=== PATIENT | male | born 1965 | race Caucasian/White ===

== ENCOUNTER 2024-08-01 07:36 | Emergency (ER) | payer OTHER, SELFPAY ==
[2024-08-01 07:43] VITALS: BP 119/77
[2024-08-01 08:16] LABS: COVID-19 Antigen Negative (Negative)
--- NOTE | 2024-08-01 09:09 | ED.GENMED ---
History of Present Illness
General
Chief Complaint: Fever
Source: patient
Exam Limitations: none
Time Seen by Provider: 08/01/24 09:08
Nursing documentation reviewed up to this point in time: agreed with
History of Present Illness
History of Present Illness:
This is a 59-year-old male with past medical history of asthma who presents emergency department today with concerns of nausea, vomiting, and body aches since last night. Patient reports that yesterday after dinner, he started to get an onset of
nausea, followed by hot sweats and 2 episodes of vomiting. He felt febrile, he not take his temperature. He also notes that he had transient left-sided abdominal pain. Currently he is abdominal pain free. He states that how he feels now feels
exactly like when he had food poisoning before in the past. Patient states that he ate a meal for [employer] a day or 2 ago which he feels like triggered this. He denies any respiratory symptoms such as sore throat, cough, shortness of breath. He
denies any chest pain. He denies any diarrhea, blood in the stools. He denies any dysuria.
Review of Systems
Review of Systems
All Other Systems: ROS reviewed and negative except as documented in HPI and ROS
Phy Exam
Physical Exam
Physical Exam:
General: Patient is well appearing and in no acute distress; non-toxic
Skin: Warm and dry, no rashes or lesions
Head: Normocephalic, atraumatic
Eyes: Sclera non-icteric. EOMs intact. PERRLA.
Cardiac: Regular rate and rhythm, no murmurs
Peripheral Vascular: No lower extremity swelling or edema
Pulm: Normal respiratory effort, no wheezes, rales, or rhonchi
Abdomen: No abdominal tenderness to palpation
Neuro: CN II-XII intact, no focal neurologic deficits.
Psychiatric: Appropriate mood and affect.
Course
Orders/Labs/Results
Orders:
Orders
08/01/24 07:48
COVID-19 Antigen Urgent
Source: Nasal Swab
Influenza A+B Rapid Molecular Urgent
LEIF Source: Nasal Swab
Specimen Description:
08/01/24 09:20
0.9% Sodium Chloride 1000 ml [Nss] 1,000 ml IV BOLUS
Acetaminophen [Tylenol] 650 mg PO NOW STA
Ondansetron Injectable [Zofran] 4 mg IV NOW STA
08/01/24 09:36
Basic Metabolic Panel Urgent
Complete Blood Count/With Diff Urgent
Lipase Urgent
Abnormal Lab Results
08/01/24
09:36
Absolute Neuts (auto) 6.8 H 10^3/uL
(1.4-6.5)
Absolute Lymphs (auto) 0.2 L 10^3/uL
(1.2-3.4)
Neutrophils % 93.2 H %
(42.2-75.2)
Lymphocytes % 2.3 L %
(20.5-51.1)
BUN 31 H mg/dl
(9-20)
Glucose 121 H mg/dl
(70-99)
08/01/24 09:36
08/01/24 09:36
Vital Signs
Initial and Last Documented VS:
Initial Vital Signs
Temp Pulse Resp BP Pulse Ox
99.5 F 91 20 119/77 96
08/01/24 07:43 08/01/24 07:43 08/01/24 07:43 08/01/24 07:43 08/01/24 07:43
Last Documented Vital Signs
Temp Pulse Resp BP Pulse Ox
98.3 F 77 19 111/70 94
08/01/24 09:14 08/01/24 10:15 08/01/24 10:15 08/01/24 10:00 08/01/24 10:15
MDM/Problems Addressed
Differential Diagnosis Includes:
ddx include gastroenteritis, viral syndrome, biliary colic, pancreatitis
MDM/Problems Addressed:
59 y/o male with a pmh of asthma presents to the ER today with concerns of nausea and 2 episodes of vomiting last night, also noted tactile fevers. He had transient left sided abdominal pain that has seemed to resolve. He also notes body aches. He
is able to tolerate PO. He states that how he feels right now is how he felt when he had food borne illness. On exam, he is afebrile, well appearing, no acute distress. He has no abdominal tenderness to palpation. His BUN to creatinine ration was
slightly elevated. He was given a bag of fluids and zofran. He notes significant improvement in his symptoms. He has a normal white count. Highly doubt acute intraabdominal pathology. Suspect viral syndrome vs food borne illness. Return precautions
discussed. Patient stable for discharge.
Chronic conditions affecting care:
asthma on budesonide
*Pulse Oximetry
Patient hypoxic: no
*Critical Care Note
Total Time (30-74mins, 75-104mins- exclusive of procedures): Not Applicable
Data Reviewed
Review of Other/Old Records Reveals: Records (Reviewed [facility], no previous records to review no discharge summary to review )
Source: patient and records
Patient Management
Escalation/DeEscalation of care consider admission/obs:
case reviewed with ER attending
ED Attending Note
-
Portions of this chart may have been created with voice recognition software.� Occasional wrong word or��sound alike� substitutions may have occurred due to the inherent limitations of voice recognition software.
Discharge Plan
Departure
Patient Disposition: Home (Routine Discharge)
Date of Disposition: 08/01/24
Time of Disposition: 10:24
Patient with high blood pressure during this ER visit?: No
Condition: Good
Discharge Problem:
Nausea & vomiting
Instructions: Fever, Adult (DC), Viral Syndrome (DC)
Prescriptions:
New
ondansetron HCl 4 mg tablet
4 mg PO Q6H PRN (Reason: nausea and vomiting) Qty: 8 0RF
Referrals:
Floyd Restrepo Jr., MD [Family Provider] -
Activity Restrictions/Additional Instructions:
Your lipase was normal. Your CBC and CMP panels were unremarkable.
Please continue to monitor your symptoms.
PLEASE RETURN TO THE EMERGENCY DEPARTMENT SHOULD YOU DEVELOP AN ACUTE WORSENING OF YOUR SYMPTOMS, INABILITY TO TOLERATE ORAL INTAKE, ABDOMINAL PAIN, FEVERS OR CHILLS, CHEST PAIN OR SHORTNESS OF BREATH, LETHARGY, CONFUSION, OR ANY OTHER SIGNS OR
SYMPTOMS WORRISOME TO YOU.
Interventions
Interventions:
*Risk Screen - Suicide Last Done: 08/01/24 07:43
*General Assessment Last Done: 08/01/24 09:27
*Neglect/Abuse Screening Last Done: 08/01/24 09:27
ED- Fall Risk Assessment Last Done: 08/01/24 09:14
*ED COVID-19 Vaccine History Last Done: 08/01/24 09:27
*Nursing Disposition Last Done: 08/01/24 10:35
ED- Neurological Assessment Last Done: 08/01/24 09:14
ED-Skin Assessment Last Done: 08/01/24 09:14
Discharge Date and Time
Discharge Date/Time: 08/01/24 10:35
Print Language: PERSIAN
[2024-08-01 09:11] VITALS: BMI 28.0
[2024-08-01 09:14] VITALS: BP 113/76
[2024-08-01] MEDS: NSS 1000 IV (09:35)
[2024-08-01] MEDS: TYLENOL 650 MG PO (09:35)
[2024-08-01] MEDS: ZOFRAN 4 MG IV (09:36)
[2024-08-01 09:49] LABS: % Basophils 0.3 % (0-2); % Immature Granulocytes 0.1 % (0-0.5); % Lymphocytes 2.3 % (20.5-51.1); % Monocytes 4.1 % (1.7-9.3); % Neutrophils 93.2 % (42.2-75.2); Absolute Lymphocytes 0.2 10^3/uL (1.2-3.4); Absolute Monocytes 0.3 10^3/uL (0.1-0.6); Absolute Neutrophils 6.8 10^3/uL (1.4-6.5); Hematocrit 42.9 % (39.0-52.0); Hemoglobin 14.7 g/dL (13.0-18.0); Mean Corp Hgb Conc. 34.3 g/dL (33.0-37.0); Mean Corpuscular Hgb 29.6 pg (27.0-31.0); Mean Corpuscular Volume 86.3 fL (80.0-94.0); Mean Platelet Volume 9.8 fL (7.4-10.4); Nucleated Red Blood Cells % 0 % (-); Platelet Count 241 10^3/uL (130-400); Red Blood Cell Count 4.97 10^6/uL (4.70-6.10); Red Cell Dist. Width 12.7 % (11.5-14.5); White Blood Cell Count 7.3 10^3/uL (4.8-10.8)
[2024-08-01 10:00] VITALS: BP 111/70
[2024-08-01 10:12] LABS: Blood Urea Nitrogen 31 mg/dl (9-20); Calcium 8.9 mg/dl (8.4-10.2); Carbon Dioxide 25 mmol/L (22-30); Chloride 102 mmol/L (98-107); Estimated Creatinine Clearance 84 ml/min; Glucose 121 mg/dl (70-99); Lipase 49 U/L (23-300); Sodium 138 mmol/L (135-145); eGFR > 60.00
== END 2024-08-01 10:35 | disposition home or self-care (01) ==
LOC: EMR 07:36
PROVIDERS: Physician Assistant; EMERGENCY PHYSICIAN Student in an Organized Health Care Education/Training Program
DX: R11.2 Nausea with vomiting, unspecified (principal); J45.909 Unspecified asthma, uncomplicated
CPT/HCPCS: 96374; 96361; 99284; 80048; 83690; 85025; 87502; 87811